=== PATIENT | female | born 1990 | race Caucasian/White ===

== ENCOUNTER 2025-07-16 11:12 | Inpatient (IN) | payer MEDICARE ==
[~2025-07-16] VITALS: Ht 157.5 cm; Wt 110.0 kg
[2025-07-16] MEDS ORDERED: LAMO25TA36 PO (11:24)
[2025-07-16] MEDS ORDERED: ARIP10TA38 PO (11:24)
[2025-07-16] MEDS ORDERED: ARIP15TA27 PO (11:25)
[2025-07-16 11:45] LABS: GLUCOMETER DEV NAME(LOC) ERT.7; GLUCOSE,POINT OF CARE 216 MG/DL (70-110)
[2025-07-16 11:47] LABS: PLATELET COUNT (AUTO) 254 K/uL (150-450); RED BLOOD CELL COUNT(AUTO) 5.01 MIL/uL (4.00-5.20); RED CELL DISTRIBUTION WIDTH 13.5 % (11.5-14.5); WHITE BLOOD COUNT (AUTO) 8.3 K/uL (4.5-11.0)
[2025-07-16 11:55] LABS: CALCIUM, TOTAL 8.1 mg/dL (8.8-10.5); CREATININE 0.64 mg/dL (0.60-1.30); GLOMERULAR FILTR. RATE CALC > 60 mL/min (>60); GLUCOSE,RANDOM 203 mg/dL (70-110); SODIUM SERUM 140 mmol/L (136-145); UREA NITROGEN, BLOOD 9 mg/dL (7-18)
[2025-07-16 12:08] LABS: ASPARTATE AMINOTRANSFERASE 342.0 U/L (15-37); HCG,QUANTITATIVE 1.0 mIU/mL (0-6); TOTAL PROTEIN, SERUM 7.0 g/dL (6.4-8.2)
[2025-07-16 12:29] LABS: APPEARANCE,URINE CLEAR (CLEAR); GLUCOSE, URINE (UA) NEGATIVE (NEGATIVE); LEUKOCYTE ESTERASE ,URINE NEGATIVE (NEGATIVE); NITRATE,URINE NEGATIVE (NEGATIVE); OCCULT BLOOD,URINE NEGATIVE (NEGATIVE); SPECIFIC GRAVITIY, URINE 1.011 (1.003-1.030)
[2025-07-16] MEDS: MORPHINE SULFATE 4 MG/ML SYRINGE IVP ONE (14:02)
[2025-07-16] MEDS: ONDANSETRON HCL 4 MG/2 ML VIAL IVP ONE (14:02)
[2025-07-16] MEDS: IOHEXOL 9 MG/ML 500 ML BOTTLE PO ONE (14:03)
[2025-07-16] MEDS: SODIUM CHLORIDE 0.9% 1,000 ML IV ONE (14:03)
[2025-07-16] MEDS ORDERED: DEXTROSE 50%-WATER 25 GM/50 ML SYRINGE IVP PRN (14:30)
[2025-07-16] MEDS ORDERED: MORPHINE SULFATE 2 MG/ML SYRINGE IVP PRN (14:30)
[2025-07-16] MEDS ORDERED: ACETAMINOPHEN 325 MG TABLET PO PRN (14:30)
[2025-07-16] MEDS ORDERED: ONDANSETRON HCL 4 MG/2 ML VIAL IVP PRN (14:30)
[2025-07-16] MEDS: SODIUM CHLORIDE 0.9% 1,000 ML IV SCH (16:42)
[2025-07-16] MEDS ORDERED: MORPHINE SULFATE 2 MG/ML SYRINGE ONE (16:53)
[2025-07-16] MEDS: MORPHINE SULFATE 4 MG/ML SYRINGE IVP PRN (17:01)
[2025-07-16] MEDS ORDERED: GADOTERATE MEGLUMINE 10 MMOL/20 ML VIAL IVP ONE (17:15)
[2025-07-16] MEDS ORDERED: PIPERACILLIN/TAZO 3.375 GM/D5W 50 ML IV ONE (18:00)
[2025-07-16 18:30] VITALS: BP 121/62; PULSE 68; RESP 18; TEMP 98.1; O2SAT 99
[2025-07-16] MEDS: PIPERACILLIN/TAZO 3.375 GM/D5W 50 ML IV SCH (19:55)
[2025-07-16] MEDS: INFLUENZA VIRUS VACCINE TVS (6MO+) 2025-26/PF 45 MCG/0.5 ML SYRINGE IM. ONE (20:30)
[2025-07-16] MEDS: DOCUSATE SODIUM 100 MG CAPSULE PO SCH (20:45)
[2025-07-16 21:06] LABS: GLUCOMETER DEV NAME(LOC) 4S.2; GLUCOSE,POINT OF CARE 108 MG/DL (70-110)
[2025-07-17 05:07] VITALS: BP 101/60; PULSE 74; RESP 18; TEMP 97.9; O2SAT 97
[2025-07-17 06:36] LABS: PLATELET COUNT (AUTO) 239 K/uL (150-450); RED BLOOD CELL COUNT(AUTO) 4.54 MIL/uL (4.00-5.20); RED CELL DISTRIBUTION WIDTH 13.7 % (11.5-14.5); WHITE BLOOD COUNT (AUTO) 9.4 K/uL (4.5-11.0)
[2025-07-17 07:46] LABS: GLUCOMETER DEV NAME(LOC) 4E.2; GLUCOSE,POINT OF CARE 132 MG/DL (70-110)
[2025-07-17 07:50] LABS: ASPARTATE AMINOTRANSFERASE 146 U/L (15-37); CALCIUM, TOTAL 7.7 mg/dL (8.8-10.5); CREATININE 0.62 mg/dL (0.60-1.30); GLOMERULAR FILTR. RATE CALC > 60 mL/min (>60); GLUCOSE,RANDOM 134 mg/dL (70-110); SODIUM SERUM 139 mmol/L (136-145); TOTAL PROTEIN, SERUM 6.2 g/dL (6.4-8.2); UREA NITROGEN, BLOOD 7 mg/dL (7-18)
[2025-07-17 08:00] VITALS: BP 94/54; PULSE 66; RESP 16; TEMP 97.7; O2SAT 98
[2025-07-17] MEDS ORDERED: POTASSIUM CHLORIDE 20 MEQ ER TABLET PO PRN (10:30)
[2025-07-17] MEDS: SODIUM CHLORIDE 0.9% 1,000 ML IV ONE (10:51)
[2025-07-17 12:26] LABS: GLUCOMETER DEV NAME(LOC) 4S.2; GLUCOSE,POINT OF CARE 134 MG/DL (70-110)
[2025-07-17] MEDS: POTASSIUM CHL 10 MEQ/WATER 50 ML IV PRN (13:17)
[2025-07-17 16:00] VITALS: BP 107/55; PULSE 80; RESP 17; TEMP 98.4; O2SAT 98
[2025-07-17 20:00] VITALS: BP 112/61; PULSE 77; RESP 18; TEMP 98.2; O2SAT 99
[2025-07-18 04:00] VITALS: BP 104/60; PULSE 72; RESP 18; TEMP 97.9; O2SAT 100
[2025-07-18 06:05] LABS: GLUCOMETER DEV NAME(LOC) 4S.2; GLUCOSE,POINT OF CARE 139 MG/DL (70-110)
[2025-07-18 07:18] LABS: PLATELET COUNT (AUTO) 218 K/uL (150-450); RED BLOOD CELL COUNT(AUTO) 4.34 MIL/uL (4.00-5.20); RED CELL DISTRIBUTION WIDTH 13.6 % (11.5-14.5); WHITE BLOOD COUNT (AUTO) 9.4 K/uL (4.5-11.0)
[2025-07-18 07:45] LABS: ASPARTATE AMINOTRANSFERASE 48 U/L (15-37); CALCIUM, TOTAL 7.9 mg/dL (8.8-10.5); CREATININE 0.55 mg/dL (0.60-1.30); GLOMERULAR FILTR. RATE CALC > 60 mL/min (>60); GLUCOSE,RANDOM 141 mg/dL (70-110); SODIUM SERUM 139 mmol/L (136-145); TOTAL PROTEIN, SERUM 6.1 g/dL (6.4-8.2); UREA NITROGEN, BLOOD 4 mg/dL (7-18)
[2025-07-18 08:21] VITALS: BP 101/57; PULSE 83; RESP 18; TEMP 98.1; O2SAT 97
[2025-07-18] MEDS: INSULIN LISPRO 100 UNITS/ML SQ PRN (12:03)
[2025-07-18 12:36] LABS: GLUCOMETER DEV NAME(LOC) 4S.2; GLUCOSE,POINT OF CARE 145 MG/DL (70-110)
[2025-07-18 16:04] VITALS: BP 103/57; PULSE 71; RESP 18; TEMP 98; O2SAT 99
[2025-07-18 18:06] LABS: GLUCOMETER DEV NAME(LOC) 4S.2; GLUCOSE,POINT OF CARE 110 MG/DL (70-110)
[2025-07-18 19:49] VITALS: BP 104/54; PULSE 86; RESP 18; TEMP 99; O2SAT 99
[2025-07-19 01:55] LABS: GLUCOMETER DEV NAME(LOC) 4E.2; GLUCOSE,POINT OF CARE 211 MG/DL (70-110)
[2025-07-19 04:58] VITALS: BP 109/62; PULSE 79; RESP 18; TEMP 98.1; O2SAT 100
[2025-07-19 06:35] LABS: GLUCOMETER DEV NAME(LOC) 4E.2; GLUCOSE,POINT OF CARE 112 MG/DL (70-110)
[2025-07-19 07:37] VITALS: BP 100/53; PULSE 78; RESP 18; TEMP 98.6; O2SAT 100
[2025-07-19 11:16] LABS: GLUCOMETER DEV NAME(LOC) 4S.2; GLUCOSE,POINT OF CARE 158 MG/DL (70-110)
== END 2025-07-19 13:10 | disposition home or self-care (01) | DRG 439 ==
LOC: EMS 11:20 → EDH 14:22 → 4E 18:20
PROVIDERS: ADMIT Internal Medicine; ATTEND Internal Medicine
PROC: GZ56ZZZ Individual Psychotherapy, Supportive (ICD-10-PCS; principal; 2025-07-18)
DX: K85.10 Biliary acute pancreatitis without necrosis or infection (principal); Z68.41 Body mass index [BMI] 40.0-44.9, adult; F25.9 Schizoaffective disorder, unspecified; E11.9 Type 2 diabetes mellitus without complications; E66.01 Morbid (severe) obesity due to excess calories; F31.9 Bipolar disorder, unspecified; R74.01 Elevation of levels of liver transaminase levels; E87.6 Hypokalemia; K80.20 Calculus of gallbladder without cholecystitis without obstruction
CPT/HCPCS: 74176; 74182; 76700; 80048; 80053; 80076; 80175; 81003; 82150; 82962; 83690; 84132; 84478; 84702; 85025; 96361; 96374; 96375; 96376; 99285; G0378; J2270; J2405; J2543; J3480; J7030; 36415-L1; 36415-TC